=== PATIENT | male | born 1990 | race Caucasian/White ===

== ENCOUNTER 2021-10-13 13:04 | Emergency (ER) | payer OTHER ==
[~2021-10-13] VITALS: Ht 182.9 cm; Wt 71.8 kg
[2021-10-13 13:12] VITALS: BP 136/55
[2021-10-13] MEDS ORDERED: HYDROcodone/APAP 5/325MG 1 TAB TABLET PO ONE (13:30)
--- NOTE | 2021-10-13 13:53 | RAD ---
XR FINGER(S)_LEFT 2+VIEWS_RT 10/13/2021 1:30 PM INDICATION: There are degenerative injury COMPARISON: None available. TECHNIQUE: 3 views of the third digit of the left hand are provided. FINDINGS/ IMPRESSION: There is no acute fracture or dislocation. Joint spaces are maintained. Bone mineralization is within normal limits. Mild soft tissue swelling of the third digit of the left hand is noted. There is sugg estion of a soft tissue defect along the dorsal margin of the distal phalangeal joint without osseous involvement. There is no soft tissue gas or osseous erosion. No radiopaque foreign body. Electronically signed by: Amirah Novoa MD (10/13/2021 1:50 PM) [id number]
--- NOTE | 2021-10-13 14:39 | PHYS DOC ---
Past History Past Medical History: No Pertinent History (ANN-MARIE HAWLEY APRN) Past Surgical History: No Surgical History (ANN-MARIE HAWLEY APRN) Smoking: Cigarettes Alcohol Use: None Drug Use: None (SALBADOR COLINDRES DO) General Adult EDM: Chief Complaint: FINGER INJURY HPI: HPI: Patient is a 31-year-old male that presents today with finger injuries. Patient states he was working [employer] and was using a grinding machine he said as he was working with gloves on his glove got caught in the groin machine pulled his fingers in, he states the second third and fourth finger of his left hand is injured. Patient has no uncontrolled bleeding noted, does state his tetanus shot is up-to-date with receiving it 3 days ago. (ANN-MARIE HAWLEY APRN) Review of Systems: Review of Systems: Constitutional: Denies fever or chills Eyes: Denies change in visual acuity HENT: Denies nasal congestion or sore throat Respiratory: Denies cough or shortness of breath Cardiovascular: Denies chest pain or edema GI: Denies abdominal pain, nausea, vomiting, bloody stools or diarrhea : Denies dysuria Musculoskeletal: Pain in wound to left hand second, third, fourth fingers Integument: Denies rash Neurologic: Denies headache, focal weakness or sensory changes Endocrine: Denies polyuria or polydipsia Lymphatic: Denies swollen glands Psychiatric: Denies depression or anxiety (ANN-MARIE HAWLEY APRN) Current Medications: Current Meds: Current Medications Medications (Trade) Dose Ordered Sig/Lora Start Time Stop Time Status Last Admin Dose Admin Acetaminophen/ Hydrocodone Bitart (Lortab 5/325) 2 tab 1X ONCE 10/13/21 13:30 10/13/21 13:42 DC 10/13/21 13:38 2 TAB (ANN-MARIE HAWLEY CASINO MANAGER) Allergies: Allergies: Allergies Coded Allergies Type Severity Reaction Last Updated Verified No Known Drug Allergies 10/13/21 No (ANN-MARIE HAWLEY APRN) Physical Exam: PE: Constitutional: Well developed, well nourished, no acute distress, non-toxic appearance. [] HENT: Normocephalic, atraumatic, bilateral external ears normal, oropharynx moist, no oral exudates, nose normal. [] Eyes: PERRLA, EOMI, conjunctiva normal, no discharge. [] Neck: Normal range of motion, no tenderness, supple, no stridor. [] Cardiovascular:Heart rate regular rhythm, no murmur [] Lungs & Thorax: Bilateral breath sounds clear to auscultation [] Abdomen: Bowel sounds normal, soft, no tenderness, no masses, no pulsatile masses. [] Skin: Warm, dry, no erythema, no rash. [] Back: No tenderness, no CVA tenderness. [] Extremities: Left hand second finger ecchymosis noted at the distal end of the finger, pain with light palpation noted, cap refill less than 2 seconds, sensory intact distal, patient can extend and flex finger. Left hand third finger 2 cm x 1 cm avulsion wound noted patient is unable to extend or flex the distal portion of the finger, cap refill less than 2 seconds, sensory intact distal to the injury, no injury to the nailbed noted, left hand fourth finger patient has pain with extension and flexion, cap refill less than 2 seconds, sensory intact distal, no lacerations, abrasions, contusions, or ecchymosis noted, Neurologic: Alert and oriented X 3, normal motor function, normal sensory function, no focal deficits noted. [] Psychologic: Affect normal, judgement normal, mood normal. [] (ANN-MARIE HAWLEY CASINO MANAGER) PE: Constitutional: Well developed, well nourished, uncomfortable HENT: Normocephalic, atraumatic Eyes: Conjunctiva normal, no discharge Neck: Normal range of motion, supple Lungs & Thorax: No respiratory distress, equal chest rise and fall Skin: Warm, dry, no erythema, deep avulsion/abrasion involving distal phalax t endon of left middle finger, no closable laceration Extremities: No tenderness, ROM intact, no edema Neurologic: Alert and oriented X 3, no focal deficits noted Psychologic: Affect normal, judgment normal (SALBADOR COLINDRES DO) Current Patient Data: Vital Signs: Vital Signs Date Time Temp Pulse Resp B/P (MAP) Pulse Ox O2 Delivery O2 Flow Rate FiO2 10/13/21 13:38 18 97 10/13/21 13:12 98.1 136/55 (82) (ANN-MARIE HAWLEY CASINO MANAGER) EKG: EKG: [] (ANN-MARIE HAWLEY CASINO MANAGER) Radiology/Procedures: Radiology/Procedures: REASON: 3rd digit injury PROCEDURE: FINGER(S) LEFT XR FINGER(S)_LEFT 2+VIEWS_RT 10/13/2021 1:30 PM INDICATION: There are degenerative injury COMPARISON: None available. TECHNIQUE: 3 views of the third digit of the left hand are provided. FINDINGS/ IMPRESSION: There is no acute fracture or dislocation. Joint spaces are maintained. Bone mineralization is within normal limits. Mild soft tissue swelling of the third digit of the left hand is noted. There is suggestion of a soft tissue defect along the dorsal margin of the distal phalangeal joint without osseous involvement. There is no soft tissue gas or osseous erosion. No radiopaque foreign body. Electronically signed by: Amirah Novoa MD (10/13/2021 1:50 PM) [id number][] (ANN-MARIE HAWLEY CASINO MANAGER) Heart Score: C/O Chest Pain: N/A Risk Factors: Risk Factors: DM, Current or recent (<one month) smoker, HTN, HLP, family history of CAD, obesity. Risk Scores: Score 0 - 3: 2.5% MACE over next 6 weeks - Discharge Home Score 4 - 6: 20.3% MACE over next 6 weeks - Admit for Clinical Observation Score 7 - 10: 72.7% MACE over next 6 weeks - Early Invasive Strategies (ANN-MARIE HAWLEY CASINO MANAGER) Course & Med Decision Making: Course & Med Decision Making Pertinent Labs and Imaging studies reviewed. (See chart for details) 1515 was able to talk with Dr. Carlitos Wen, plastic surgeon/hand specialist, he states he will see the patient in his office tomorrow. Patient he asked that the wound be irrigated, dressing applied, antibiotics be ordered, Paloma be ordered. Digital block to the third finger on the left hand using 1% lidocaine 5 mL, for pain control and debridement of wound 1535 left hand second, third, fourth finger cleansed with normal saline. All debris removed, emollient gauze placed on wound, tube gauze placed by nursing staff, small abrasion noted on the fourth finger at the proximal joint, area cleansed bandage applied. Patient will be discharged home for management by Dr. Wen. (ANN-MARIE HAWLEY APRN) Gil Disclaimer: Gil Disclaimer: This electronic medical record was generated, in whole or in part, using a voice recognition dictation system. (ANN-MARIE HAWLEY APRN) Departure Departure: Impression: Primary Impression: Avulsion of finger Qualified Codes: S61.209A - Unspecified open wound of unspecified finger without damage to nail, initial encounter Additional Impressions: Tendon injury Fingertip contusion Qualified Codes: S60.00XA - Contusion of unspecified finger without damage to nail, initial encounter Disposition: HOME / SELF CARE / HOMELESS Condition: STABLE Referrals: PCP,UNKNOWN (PCP) Patient Instructions: Crush Injury, Fingers or Toes, Finger Avulsion Additional Instructions: Paloma 1 to 2 tablets every 6 hours as needed for pain, do not drive or operate heavy machinery while taking this may cause drowsiness Keflex 500 mg 4 times daily for 7 days Follow-up with Carlitos Wen at [phone], address is [address] [place] [address] Leave current dressing in place until seen Scripts Hydrocodone Bit/Acetaminophen (HYDROCODONE-APAP 5-325 ) 1 Each Tablet 1 TAB PO PRN Q6HRS PRN for PAIN, #30 TAB 0 Refills Prov: ANN-MARIE HAWLEY APRN 10/13/21 Cephalexin (KEFLEX) 500 Mg Capsule 1 CAP PO QID for avulsion for 10 Days, #40 CAP Prov: ANN-MARIE HAWLEY APRN 10/13/21 Attending Signature Attending Signature I have participated in the care of this patient and I have reviewed and agree with all pertinent clinical information above including history, exam, and recommendations. (SALBADOR COLINDRES DO) ANN-MARIE HAWLEY APRN Oct 13, 2021 14:39 SALBADOR COLINDRES DO Oct 14, 2021 01:15
[2021-10-13] MEDS ORDERED: LIDOCAINE 1% PF 30 ML VIAL. INJ ONE (14:45)
[2021-10-13] MEDS ORDERED: HYDR-2155 PO (15:51)
[2021-10-13] MEDS ORDERED: CEPH500C PO (15:51)
== END 2021-10-13 16:35 | disposition home or self-care (01) ==
LOC: ER 13:04
DX: S61.301A Unspecified open wound of left index finger with damage to nail, initial encounter (principal); S61.303A Unspecified open wound of left middle finger with damage to nail, initial encounter; S60.022A Contusion of left index finger without damage to nail, initial encounter; F17.210 Nicotine dependence, cigarettes, uncomplicated; W31.89XA Contact with other specified machinery, initial encounter; Y93.89 Activity, other specified; Y92.89 Other specified places as the place of occurrence of the external cause; Y99.8 Other external cause status
CPT/HCPCS: 64450; 73140; 99284